=== PATIENT | male | born 1995 | race Caucasian/White ===

== ENCOUNTER 2024-06-11 16:50 | Emergency (ER) | payer BC, SELFPAY ==
[2024-06-11 16:59] VITALS: BP 143/76; PULSE 70; TEMP 36.5; O2SAT 98; BMI 33.9
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
--- NOTE | 2024-06-11 17:22 | XR_ITS ---
The [address] [address] Patient Name: KERRY ESPARZA MRN: [id number] date: 1995 Sex: M Assigned Patient Location: ER Current Patient Location: ED.MAIN Accession/Order Number: [id number] Exam Date: 06/11/2024 17:15 Report Date: 06/11/2024 17:54 At the request of: LORENA WHITE Procedure: XR hand RT min 3V EXAM: XR hand RT min 3V HISTORY: injury COMPARISON: None. TECHNIQUE: 3 views of the right hand were obtained. FINDINGS: There is no evidence of an acute fracture or dislocation. The joint spaces are intact. No significant focal osseous abnormality is identified. The soft tissues appear intact as well. XR/XR hand RT min 3V IMPRESSION: No acute fracture or dislocation. The joint spaces are intact. Electronically authenticated by: FAVIOLA FULLER Date: 06/11/2024 17:54
[2024-06-11 18:07] VITALS: BP 128/88; PULSE 88; O2SAT 98
== END 2024-06-11 18:08 | disposition home or self-care (01) ==
PROVIDERS: Emergency Provider Emergency Medicine
DX: S60.221A Contusion of right hand, initial encounter (principal); W22.8XXA Striking against or struck by other objects, initial encounter
CPT/HCPCS: 73130; 99283